=== PATIENT | female | born 1970 | race Caucasian/White ===

== ENCOUNTER 2024-07-15 22:12 | Inpatient (IN) | payer OTHER, SELFPAY ==
[2024-07-15] VITALS (9 sets, daily range): BP systolic 106–137; BP diastolic 56–106; BMI 32.7
[2024-07-15 18:43] LABS: % Basophils 1.1 % (0-2); % Eosinophils 0.1 % (0-6); % Immature Granulocytes 1.5 % (0-0.5); % Lymphocytes 6.7 % (20.5-51.1); % Monocytes 8.1 % (1.7-9.3); % Neutrophils 82.5 % (42.2-75.2); Absolute Basophils 0.1 10^3/uL (0-0.2); Absolute Immature Granulocytes 0.2 10^3/uL (0-0.05); Absolute Lymphocytes 0.7 10^3/uL (1.2-3.4); Absolute Monocytes 0.8 10^3/uL (0.1-0.6); Absolute Neutrophils 8.5 10^3/uL (1.4-6.5); Hematocrit 32.6 % (37.0-47.0); Hemoglobin 11.5 g/dL (12.0-16.0); Mean Corp Hgb Conc. 35.3 g/dL (33.0-37.0); Mean Corpuscular Hgb 30.6 pg (27.0-31.0); Mean Corpuscular Volume 86.7 fL (81.0-99.0); Mean Platelet Volume 10.9 fL (7.4-10.4); Nucleated Red Blood Cells % 0 %; Platelet Count 237 10^3/uL (130-400); Red Blood Cell Count 3.76 10^6/uL (4.20-5.40); Red Cell Dist. Width 13.1 % (11.5-14.5); White Blood Cell Count 10.3 10^3/uL (4.8-10.8)
[2024-07-15 19:00] LABS: COVID-19 Antigen Negative (Negative)
--- NOTE | 2024-07-15 19:00 | ED.GENMED ---
History of Present Illness
General
Chief Complaint: Headache
Source: patient
Exam Limitations: none
Time Seen by Provider: 07/15/24 18:08
History of Present Illness
History of Present Illness:
Patient started with swollen lymph nodes 1 week ago. 4 days ago she woke up with a general headache. Almost like a brain freeze type of headache. Has had recurrent episodes of nausea and vomiting since then. No photophobia no neck pain no focal
weakness numbness or tingling. Possibly some slight cough. Low-grade fevers at home. No abdominal pain or urinary symptoms.
Past History
Past History
ED Past Medical History: Asthma, CAD, Hypercholesterolemia and MA (nonSTEMI 05/01/22)
ED Past Surgical History: Appendectomy, Cardiac (stent LAD 05/01/22), and Other (Cyst removal, abdominoplasty)
Social History
Tobacco: Former smoker
Alcohol: Occasional
Drug: None
Personal:
Living: with family
Family History
Family History: Diabetes and Other (Breast cancer)
Review of Systems
Review of Systems
All Other Systems: Not applicable
Constitutional: Reports fever and chills
Respiratory: Reports cough
ABD/GI: Reports no symptoms
: Reports no symptoms
Phy Exam
Physical Exam
Physical Exam:
GENERAL: Alert and oriented in no apparent distress
EYE: Orbits normal.
NECK: Supple, nontender
CARDIAC: Regular rate and rhythm without any obvious murmurs.
LUNGS: Clear breath sounds,normal
ABDOMEN: Soft, without focal tenderness or distention
NEUROLOGICAL: Alert and oriented , grossly non-focal
SKIN: Warm and dry, no rash or lesion, no discoloration, skin intact.
MUSCULOSKELETAL: No edema,no deformity.Good color
PSYCH: Normal and appropriate interaction.
Course
Orders/Labs/Results
Orders:
Orders
07/15/24 18:23
Cardiac Monitoring- Treatment ONCE
IV Insert/Care/Rem.- Treatment PRN
Urinalysis Reflex To Culture Urgent
CXR2 [CR Chest - 2 Views ] Urgent
Comment:
Reason For Exam: fever cough
07/15/24 18:28
COVID-19 Antigen Urgent
Source: Nasal Swab
Complete Blood Count/With Diff Urgent
Comprehensive Metabolic Panel Urgent
Influenza A+B Rapid Molecular Urgent
MARIANA Source: Nasal Swab
Specimen Description:
07/15/24 19:51
Azithromycin 500 mg IVPB NOW Azithromycin 500 mg/250 ml [Zithromax Infusion] 500 mg in 250 ml IV NOW
CefTRIAXone [Rocephin] 1,000 mg IV NOW STA
NSS 1000mL Bolus WIDE OPEN 0.9% Sodium Chloride 1000 ml [Nss] 1,000 ml IV BOLUS
Abnormal Lab Results
07/15/24
18:28
RBC 3.76 L 10^6/uL
(4.20-5.40)
Hgb 11.5 L g/dL
(12.0-16.0)
Hct 32.6 L %
(37.0-47.0)
MPV 10.9 H fL
(7.4-10.4)
Abs Immat Gran (auto) 0.2 H 10^3/uL
(0-0.05)
Absolute Neuts (auto) 8.5 H 10^3/uL
(1.4-6.5)
Absolute Lymphs (auto) 0.7 L 10^3/uL
(1.2-3.4)
Absolute Monos (auto) 0.8 H 10^3/uL
(0.1-0.6)
Immature Gran % 1.5 H %
(0-0.5)
Neutrophils % 82.5 H %
(42.2-75.2)
Lymphocytes % 6.7 L %
(20.5-51.1)
Sodium 134 L mmol/L
(135-145)
Chloride 96 L mmol/L
(98-107)
BUN 22 H mg/dl
(7-17)
Glucose 124 H mg/dl
(70-99)
AST 110 H U/L
(14-36)
ALT 67 H U/L
(0-35)
Alkaline Phosphatase 167 H U/L
(38-126)
07/15/24 18:28
07/15/24 18:28
Vital Signs
Initial and Last Documented VS:
Initial Vital Signs
Temp Pulse Resp BP Pulse Ox
100.3 F 73 20 137/106 97
07/15/24 17:19 07/15/24 17:19 07/15/24 17:19 07/15/24 17:19 07/15/24 17:19
Last Documented Vital Signs
Temp Pulse Resp BP Pulse Ox
100.3 F 72 24 107/56 96
07/15/24 17:19 07/15/24 19:15 07/15/24 19:15 07/15/24 19:09 07/15/24 19:15
MDM/Problems Addressed
Differential Diagnosis Includes:
Patient describing some general nonfocal headaches with nausea and vomiting. Also some myalgias and low-grade fevers. Most support of an infectious process. Clinically she is not meningitic. Her neck is supple. She currently has no nausea or
headache. And in fact offered pain management or antiemetics but stated she did not need them now. Highly doubt primary neurologic issue. Highly doubt subarachnoid hemorrhage. Workup in progress
*Radiology
Radiology exam reviewed: preliminary read by ED provider (Right upper lobe pneumonia)
*Pulse Oximetry
Patient hypoxic: no
*Critical Care Note
Total Time (30-74mins, 75-104mins- exclusive of procedures): Not Applicable
Update Note
Update Note:
Patient is being admitted for recurrent vomiting/dehydration. Dense right upper lobe pneumonia. Feels ill.
ED Attending Note
-
Portions of this chart may have been created with voice recognition software.� Occasional wrong word or��sound alike� substitutions may have occurred due to the inherent limitations of voice recognition software.
Discharge Plan
Departure
Patient Disposition: Admit
Date of Disposition: 07/15/24
Time of Disposition: 19:52
Presentation/result/management discussed w/ accepting MD/DO: Hospitalist
Discharge Problem:
Right upper lobe pneumonia
Prescriptions:
No Action
budesonide-formoterol [Symbicort] 160-4.5 mcg/actuation Hfa Aerosol Inhaler
2 puff INHALATION R DAILY
Brilinta 90 mg Tablet
90 mg PO BID Qty: 180 5RF
atorvastatin 80 mg Tablet
80 mg PO QPM Qty: 90 5RF
aspirin 81 mg Tablet,Chewable
81 mg PO DAILY Qty: 1 0RF
metoprolol succinate 25 mg Tablet Extended Release 24 Hr
25 mg PO QPM Qty: 90 5RF
lisinopril 2.5 mg Tablet
2.5 mg PO BID Qty: 180 5RF
nitroglycerin [nitroglycerin] 0.4 mg tablet, sublingual
0.4 mg sublingual [id number] PRN (Reason: chest pain) Qty: 25 5RF
Referrals:
Rivera Suarez DO [Family Provider] -
Interventions
Interventions:
*Risk Screen - Suicide Last Done: 07/15/24 17:19
*General Assessment Last Done: 07/15/24 17:19
*Neglect/Abuse Screening Last Done: 07/15/24 17:19
ED- Fall Risk Assessment Last Done: 07/15/24 18:12
*ED COVID-19 Vaccine History Last Done: 07/15/24 17:19
ED- Neurological Assessment Last Done: 07/15/24 18:12
Discharge Date and Time
Print Language: JAPANESE
[2024-07-15 19:07] LABS: ALT (SGPT) 67 U/L (0-35); AST (SGOT) 110 U/L (14-36); Albumin 3.8 g/dl (3.5-5.0); Alkaline Phosphatase 167 U/L (38-126); Blood Urea Nitrogen 22 mg/dl (7-17); Calcium 8.7 mg/dl (8.4-10.2); Carbon Dioxide 23 mmol/L (22-30); Chloride 96 mmol/L (98-107); Glucose 124 mg/dl (70-99); Potassium 3.9 mmol/L (3.5-5.1); Sodium 134 mmol/L (135-145); Total Bilirubin 1.3 mg/dl (0.2-1.3); Total Protein 6.8 g/dl (6.3-8.2); eGFR > 60.00
[2024-07-15] MEDS: ZITHROMAX INFUSION 250 IV (19:55)
[2024-07-15] MEDS: NSS 1000 IV ×2 (19:55→22:59)
[2024-07-15] MEDS: ROCEPHIN 1000 MG IV (19:55)
[2024-07-15] MEDS: TYLENOL 650 MG PO (20:45)
--- NOTE | 2024-07-15 21:20 | HPS.HSE ---
Family Physician
-
Family Physician: Rivera Suarez
Chief Complaint
-
Cough, Headache, Malaise
History of Present Illness
Patient is a 53y F with PMH significant for ASCVD and asthma who presents to ED complaining of cough, headache, fever and malaise x 1 week. Patient states that symptoms started one week ago with a headache. She has since developed hacking,
non-productive cough, fevers and chills, N/V and general malaise. Her symptoms have not improved in the past week despite taking multiple OTC cold and flu medications. Patient denies any recent travel. Her was ill with bronchitis about 3
weeks ago.
Medical History
Past Medical History
Past Medical History: Reports Other
Additional Past Medical History:
ASCVD
Asthma
Obesity
Basal Cell Skin Cancer
Past Surgical History: Reports Other
Additional Past Surgical History:
PTCA with Stent
Appendectomy
Cholecystectomy
Abdominoplasty
Sinus Surgery
Social History
Tobacco: Smoker (Current every day smoker. 1/2 ppd for total of approx 20 pack years.)
Alcohol: Occasional
Drug: None
Personal:
Living: With Family
Family History
Family History: Not pertinent
Allergies / Home Medications
Allergies reflects when Allergies were last updated in [employer].
Home Medications with original date entered in [employer]
Allergy/Medication List:
Allergies
Allergy/AdvReac Type Severity Reaction Status Date / Time
acetaminophen [From Percocet] AdvReac nausea,dizz Verified 07/15/24 20:48
iness
codeine [Codeine] AdvReac NAUSEA Verified 05/06/22 19:38
oxycodone HCl [From Percocet] AdvReac nausea,dizz Verified 05/06/22 19:38
iness
Home Medications
budesonide-formoterol HFA 160 mcg-4.5 mcg/actuation aerosol inhaler (Symbicort) 1 puff inhalation R BIDPRN PRN breathing issues 05/01/22
nitroglycerin 0.4 mg sublingual tablet 0.4 mg sublingual [id number] PRN chest pain #25 tabs 05/03/22
acetaminophen 500 mg tablet (Tylenol Extra Strength) 1,000 mg PO Q6HPRN PRN mild pain 07/15/24
aspirin 81 mg chewable tablet 81 mg PO HS 07/15/24
atorvastatin 80 mg tablet 80 mg PO HS 07/15/24
ezetimibe 10 mg tablet 10 mg PO HS 07/15/24
ibuprofen 200 mg tablet (Advil) 400 mg PO Q6HPRN PRN mild pain 07/15/24
metoprolol succinate 25 mg tablet,extended release 24 hr 25 mg PO HS 07/15/24
valsartan 80 mg tablet 80 mg PO HS 07/15/24
Review of Systems
-
History Source: Patient
A 12 point ROS was completed and negative except as noted: Yes
Constitutional: Reports Fever, Fatigue and Chills
EENT: Denies Sore Throat
Respiratory: Reports Cough; Denies Trouble Breathing
Cardiac: Denies Chest Pain or Palpitations
Abdomen/GI: Reports Nausea, Vomiting and Constipated; Denies Abdominal Pain or Diarrhea
: Denies Dysuria, Frequency or Flank Pain
Musculoskeletal: Denies Joint Pain or Edema
Neurological: Reports Headache; Denies Dizzy
Physical Exam
Vital Signs
Vital Signs
Temp Pulse Resp BP Pulse Ox
100.3 F 72 24 116/60 96
07/15/24 17:19 07/15/24 19:15 07/15/24 19:15 07/15/24 21:00 07/15/24 21:01
Physical Exam
General: Other (53y F in no acute distress.)
HEENT: Moist mucous membranes and PERRLA
Respiratory: Other (Pos rales over the RUL.)
Cardiac: S1/S2 and Regular Rhythm; No Murmur
GI: Soft, Non Tender, Non Distended and Normal Bowel Sounds
Musculoskeletal: No Clubbing, No Cyanosis and No Edema
Neuro: AO x 3
Laboratory Results
-
07/15/24 18:28
07/15/24 18:
Laboratory Results
Total Bilirubin 1.3 mg/dl (0.2-1.3) 07/15/24 18:
AST 110 U/L (14-36) H 07/15/24 18:
ALT 67 U/L (0-35) H 07/15/24 18:
Alkaline Phosphatase 167 U/L (38-126) H 07/15/24 18:
Impression/Plan
-
A/P: Patient is a 53y F with PMH significant for ASCVD and asthma who presents to ED complaining of week of cough, headache and malaise.
RUL Pneumonia
- Admit for further evaluation and treatment.
- COVID and Influenza negative in the ED.
- Continue abx with ceftriaxone and azithromycin.
- Supportive care including antipyretics, O2, etc.
- Follow for clinical improvement.
- Repeat CXR in several weeks to document resolution of pneumonia.
- Follow for any new / worsening symptoms.
ASCVD
- Stable. Continue current CV med regimen including ASA, statin, beta-blockers.
Asthma without Acute Exacerbation
- Albuterol PRN for SOB or wheezing.
DVT Prophylaxis: Lovenox
Code Status: Full
[2024-07-15] MEDS: LIPITOR 80 MG PO (23:00)
[2024-07-15] MEDS: LOW STRENGTH ASPIRIN 81 MG PO (23:00)
--- NOTE | 2024-07-15 23:00 | TRANSFER ---
pt arrived via stretcher from ED. pt ambulated independently from the stretcher to the bed. AAOx3, VSS stable. call sellers within reach. plan of care ongoing.
[2024-07-15] MEDS: TOPROL XL 25 MG PO (23:06)
[2024-07-16 01:32] LABS: Urine Albumin Trace (Neg - Trace); Urine Bilirubin 1+ (Negative); Urine Character Clear (Clear); Urine Color Yellow; Urine Glucose Negative (Negative); Urine Ketone 1+ (Negative); Urine Leukocyte Negative (Negative); Urine Nitrite Negative (Negative); Urine Occult Blood Negative (Negative); Urine Specific Gravity 1.015 (<1.030); Urine Urobilinogen 2+ (Neg - 1+)
[2024-07-16] MEDS: TYLENOL 650 MG PO ×3 (01:50→14:26)
[2024-07-16] MEDS: COMPAZINE 5 MG IV ×2 (02:52→15:50)
[2024-07-16] MEDS: NSS 1000 IV (06:19)
[2024-07-16 07:25] VITALS: BP 105/50
--- NOTE | 2024-07-16 07:32 | W.PN.HOSP.TC ---
Today's Communication/Plan
-
cont abx
follow up repeat EKG in AM QT monitoring while on azithromycin
prn Tylenol antitussives
start scheduled mucinex
sputum culture if possible
Assessment / Plan
Assessment / Plan
Physical Exam
General: Mild moderate distress due to severe coughing bout
HEENT: Moist mucous membranes and PERRLA
Respiratory: Clear to auscultation bilateral
Cardiac: S1/S2 and Regular Rhythm; No Murmur
GI: Soft, Non Tender, Non Distended and Normal Bowel Sounds
Musculoskeletal: No Clubbing, No Cyanosis and No Edema
Neuro: AO x 3
A/P: Patient is a 53y F with PMH significant for CAD hx NSTEMI s/p stents 2021, asthma, former smoker who presents to ED complaining of week of cough, headache and malaise.
RUL Pneumonia
- Admit for further evaluation and treatment.
- COVID and Influenza negative in the ED.
- Continue abx with ceftriaxone and azithromycin EKG noted QT w/in acceptable limits repeat in AM.
- Supportive care including prn antipyretics antitussives, O2 as necessary (currently stable on room air), etc.
- Repeat CXR in 1 month to document resolution of pneumonia.
-mucinex
-sputum culture if possible
ASCVD
CAD s/p stents
hx NSTEMI 2021
- Stable. Continue current CV med regimen including ASA, statin, beta-blockers.
-EKG appreciated NSR possible anteroseptal infarct and nonspecific ST abn's
-chest pain free
-Follow up repeat EKG in AM for QT monitoring while on azithromycin as above
Asthma without Acute Exacerbation
- Albuterol PRN for SOB or wheezing.
DVT Prophylaxis: Lovenox
Code Status: Full
Discussed with patient, patient's Guanaco, and RN
I spent a total of 50 minutes with the patient or on the floor. More than 50% of this time involved counseling and coordination of care.
Anticipated Discharge: 24 - 48 hours
Subjective/Interval History
-
Date of Service: July 16, 2024
mild moderate distress d/t excessive coughing following shower. Reports diarrhea. Denies chest pain shortness of breath at rest. Intermittent nausea associated with severe coughing bouts.
Objective Data
-
Labs:
Laboratory Results
07/16/24
06:00
WBC Pending
Hgb Pending
Hct Pending
Plt Count Pending
Sodium Pending
Potassium Pending
Chloride Pending
Carbon Dioxide Pending
BUN Pending
Creatinine Pending
Glucose Pending
Calcium Pending
Total Bilirubin Pending
AST Pending
ALT Pending
Alkaline Phosphatase Pending
Vital Signs:
Vital Signs
Temp Pulse Resp BP Pulse Ox
99.6 F 72 20 106/59 94
07/15/24 22:47 07/15/24 23:06 07/15/24 22:47 07/15/24 23:06 07/15/24 23:00
I&O
07/15/24 07/16/24 07/17/24
06:59 06:59 06:59
Intake Total 480 / 480
Output Total 300 / 300
Balance 180 / 180
[2024-07-16] MEDS: ZITHROMAX 500 MG PO (08:16)
[2024-07-16 08:42] LABS: Hematocrit 30.9 % (37.0-47.0); Hemoglobin 10.7 g/dL (12.0-16.0); Mean Corp Hgb Conc. 34.6 g/dL (33.0-37.0); Mean Corpuscular Volume 92.5 fL (81.0-99.0); Mean Platelet Volume 11.2 fL (7.4-10.4); Platelet Count 200 10^3/uL (130-400); Red Blood Cell Count 3.34 10^6/uL (4.20-5.40); Red Cell Dist. Width 13.3 % (11.5-14.5); White Blood Cell Count 9.7 10^3/uL (4.8-10.8)
[2024-07-16 10:34] LABS: ALT (SGPT) 55 U/L (0-35); AST (SGOT) 85 U/L (14-36); Albumin 2.8 g/dl (3.5-5.0); Alkaline Phosphatase 147 U/L (38-126); Blood Urea Nitrogen 13 mg/dl (7-17); Calcium 7.8 mg/dl (8.4-10.2); Carbon Dioxide 23 mmol/L (22-30); Chloride 104 mmol/L (98-107); Direct Bilirubin 0.3 mg/dl (0.0-0.4); Estimated Creatinine Clearance 111 ml/min; Glucose 108 mg/dl (70-99); Potassium 3.5 mmol/L (3.5-5.1); Sodium 136 mmol/L (135-145); Total Bilirubin 0.7 mg/dl (0.2-1.3); Total Protein 5.2 g/dl (6.3-8.2); eGFR > 60.00
[2024-07-16 11:11] VITALS: BMI 32.7
[2024-07-16] MEDS: ROBITUSSIN DM 10 ML PO ×2 (14:27→23:10)
[2024-07-16 15:30] VITALS: BP 110/57
[2024-07-16] MEDS: LOVENOX 40 MG SC (17:30)
[2024-07-16] MEDS: STERILE WATER FOR INJECTION 10 ML IV (20:18)
[2024-07-16] MEDS: MUCINEX 600 MG PO (20:18)
[2024-07-16] MEDS: ROCEPHIN 1000 MG IV (20:19)
[2024-07-16 23:00] VITALS: BP 104/56
[2024-07-16] MEDS: LOW STRENGTH ASPIRIN 81 MG PO (23:02)
[2024-07-16] MEDS: LIPITOR 80 MG PO (23:02)
[2024-07-16] MEDS: TOPROL XL 25 MG PO (23:07)
[2024-07-17 07:25] VITALS: BP 112/61
--- NOTE | 2024-07-17 07:38 | W.PN.HOSP.TC ---
Today's Communication/Plan
-
discharge
Assessment / Plan
Assessment / Plan
Physical Exam
General:No acute distress appears comfortable
HEENT: Moist mucous membranes and PERRLA
Respiratory: Clear to auscultation bilateral
Cardiac: S1/S2 and Regular Rhythm; No Murmur
GI: Soft, Non Tender, Non Distended and Normal Bowel Sounds
Musculoskeletal: No Clubbing, No Cyanosis and No Edema
Neuro: AO x 3
A/P: Patient is a 53y F with PMH significant for CAD hx NSTEMI s/p stents 2021, asthma, former smoker who presents to ED complaining of week of cough, headache and malaise.
RUL Pneumonia
- COVID and Influenza negative in the ED.
- completed 3 days azithromycin no significant QT prolongation noted
- symptomatically improved empiric Ceftriaxone to switch to Augmentin planned for 5 more days
- Repeat CXR in 1 month with primary care provider recommended
-Mucinex completed, coughing improved/resolved
ASCVD
CAD s/p stents
hx NSTEMI 2021
- Stable. Continue current CV med regimen including ASA, beta-blockers.
-Statin held d/t mild transaminitis resolving, ok to resume on discharge
-EKG appreciated NSR possible anteroseptal infarct and nonspecific ST abn's (anteroseptal infarct no longer present on repeat EKG in AM)
-chest pain free
Asthma without Acute Exacerbation
- Albuterol PRN for SOB or wheezing.
DVT Prophylaxis: Lovenox
Code Status: Full
Medically stable for discharge home with outpatient follow up recommendations
Total Time Preparing Discharge __40 minutes including examination of the patient, summary of the hospital stay, instructions for continuing care to all relevant caregivers; and preparation of discharge records, prescriptions, and referral
forms if necessary.
Anticipated Discharge: Today
Subjective/Interval History
-
Date of Service: July 17, 2024
Symptomatically improved. Patient reports feeling well. Denies new acute issues at this time. Eager to go home.
Objective Data
-
Labs:
Laboratory Results
07/17/24
06:00
WBC Pending
Hgb Pending
Hct Pending
Plt Count Pending
Sodium Pending
Potassium Pending
Chloride Pending
Carbon Dioxide Pending
BUN Pending
Creatinine Pending
Glucose Pending
Calcium Pending
Total Bilirubin Pending
AST Pending
ALT Pending
Alkaline Phosphatase Pending
Vital Signs:
Vital Signs
Temp Pulse Resp BP Pulse Ox
99.3 F 79 18 104/56 95
07/16/24 23:00 07/16/24 23:07 07/16/24 23:00 07/16/24 23:07 07/16/24 23:00
I&O
07/16/24 07/17/24 07/18/24
06:59 06:59 06:59
Intake Total 480 / 480 1640 / 1640
Output Total 300 / 300 700 / 700
Balance 180 / 180 940 / 940
[2024-07-17 08:48] VITALS: BP 112/61
--- NOTE | 2024-07-17 09:09 | W.DCSUMMARY ---
Discharge Summary
Discharge Data
Date of Admission: 07/15/24
Date of Discharge: 07/17/24
-
Pending Results: Yes
Additional Pending Results:
respiratory culture results
Discharge Plan
-
Patient Disposition: Home (Routine Discharge)
Discharge Diagnosis/Procedures: Right Upper Lobe Pneumonia
Anemia
Mild transaminitis
Condition: Fair
Diet: Regular
Activity: As tolerated
Driving Restrictions: As prior to admission
Bathing Restrictions: None
Blood Work: Please repeat CBC and CMP with your primary care provider in 1 week of discharge.
Others Tests: Please repeat Chest X-ray with primary care provider in 1 month of discharge to follow up resolution of Pneumonia findings
Activity Restrictions/Additional Instructions:
Please follow up with primary care provider in 1 week of discharge.
Augmentin has been prescribed for 5 more days to complete treatment of pneumonia.
Please take medications as prescribed/recommended and follow up with primary care provider and/or other healthcare provider involved in your care for further adjustment to your medication regimen as necessary.
Referrals:
Rivera Suarez DO [Family Provider] - in one week
Prescriptions:
New
amoxicillin-pot clavulanate 875-125 mg Tablet
1 tab PO Q12 5 Days Qty: 10 0RF
Continued
budesonide-formoterol [Symbicort] 160-4.5 mcg/actuation Hfa Aerosol Inhaler
1 puff INHALATION R BIDPRN PRN (Reason: breathing issues)
nitroglycerin 0.4 mg tablet, sublingual
0.4 mg sublingual [id number] PRN (Reason: chest pain) Qty: 25 5RF
valsartan 80 mg Tablet
80 mg PO HS
acetaminophen [Tylenol Extra Strength] 500 mg Tablet
1,000 mg PO Q6HPRN PRN (Reason: mild pain)
ibuprofen [Advil] 200 mg Tablet
400 mg PO Q6HPRN PRN (Reason: mild pain)
ezetimibe 10 mg Tablet
10 mg PO HS
atorvastatin 80 mg tablet
80 mg PO HS
aspirin 81 mg tablet,chewable
81 mg PO HS
metoprolol succinate 25 mg tablet extended release 24 hr
25 mg PO HS
Discharge Orders:
Discharge Patient (As Directed); Ordered 07/17/24
Ordered By: Adrian Chu
Discharge Date and Time
Print Language: SOMALI
[2024-07-17] MEDS: AUGMENTIN 875 MG/125 MG 1 TABLET PO (09:28)
[2024-07-17] MEDS: MUCINEX 600 MG PO (09:28)
--- NOTE | 2024-07-17 10:14 | CM ---
CM following re: discharge planning.
Reviewed pt's chart, met with pt.
Pt is a 53 year old female, admitted with primary dx of RUL Pneumonia.
Pt reports she lives with in a 2SH, 1 step to enter, has supportive family. Pt described herself as independent in all areas [employer]. works, drives.
Discharge order noted. Pt is are and she stated her is coming to transport her home. No after care VN daron identified.
D/C plan: home no needs. to transport.
== END 2024-07-17 11:45 | disposition home or self-care (01) | DRG 195 ==
LOC: 4 EAST ACU 22:12
PROVIDERS: ADMITTING PHYSICIAN Hospitalist; ATTENDING PHYSICIAN Internal Medicine; EMERGENCY PHYSICIAN Emergency Medicine; FAMILY PHYSICIAN Family Medicine
DX: J18.9 Pneumonia, unspecified organism (principal); F17.210 Nicotine dependence, cigarettes, uncomplicated; I25.10 Atherosclerotic heart disease of native coronary artery without angina pectoris; J45.909 Unspecified asthma, uncomplicated; D64.9 Anemia, unspecified; Z11.52 Encounter for screening for COVID-19
CPT/HCPCS: 71046; 80053; 81003; 82248; 85025; 85027; 87205; 87502; 87811; 93005; 96361; 96365; 96375; 99285

== ENCOUNTER → 2024-08-09 16:33 | Outpatient (REF) | payer OTHER, SELFPAY | LOC: WDC 16:33 | PROVIDERS: ATTENDING PHYSICIAN Family Medicine | DX: Z12.31 Encounter for screening mammogram for malignant neoplasm of breast (principal) | CPT/HCPCS: 77063; 77067 ==

== ENCOUNTER → 2024-08-19 16:18 | Outpatient (REF) | payer OTHER, SELFPAY | LOC: RAD 16:18 | PROVIDERS: ATTENDING PHYSICIAN Family Medicine | DX: J18.9 Pneumonia, unspecified organism (principal) | CPT/HCPCS: 71046 ==

== ENCOUNTER → 2024-10-20 15:53 | Outpatient (REF) | payer OTHER, SELFPAY | LOC: RAD 15:53 | PROVIDERS: ATTENDING PHYSICIAN Family Medicine | DX: R93.89 Abnormal findings on diagnostic imaging of other specified body structures (principal) | CPT/HCPCS: 71046 ==